=== PATIENT | male | born 1965 | race Caucasian/White ===

== ENCOUNTER 2016-05-26 18:26 | Inpatient (IN) | payer SELFPAY ==
[~2016-05-26] VITALS: Ht 193 cm; Wt 126.4 kg
--- NOTE | ~2016-05-26 | ECHO ---
Transthoracic Echocardiography Report (TTE) Demographics Patient Name JUD ROCHA Date of Study 05/27/2016 Patient Number [id number] Visit Number [id number] Date of 1965 Room Number G6310 Gender Male Number Age 51 year(s) Referring Mitul Gomez MD Helicopter Repairer Leroy Ponce RVT Physician Physician Interpreting Vilma De Paz Billiard Table Assembler Physician A Supervising Ordering Mitul Gomez MD, MD/MLP Physician Nurse Stress General Education Professor Conclusions Contractility Score Summary Normal Left Ventricular contractility was noted. Summary The estimated left ventricular ejection fraction is 60%. Moderate concentric left ventricular hypertrophy. Diastolic assessment reveals Grade II pseudonormal diastolic function . The left atrium is moderately dilated by LA volume index measurement. The right atrium is moderately dilated. Procedure Type of Study TTE procedure:2D Echocardiogram. Procedure Date Date: 05/27/2016 Start: 10:39 AM Study Location: Inpatient Portable Technical Quality: Adequate visualization Indications:Chest pain. Appropriate Use Criteria: 9 Patient Status: Routine HR: 85 bpm BP: 114/55 mmHg M-Mode/2D Measurements LV Diastolic Dimension: 4.22 cm LV Systolic Dimension: 2.87 cm LV Septum Diastolic: 1.66 cm LV PW Diastolic: 1.47 cm AO Root Dimension: 2.4 cm Cardiac Output: 3.97 l/min AV Cusp Separation: 2.1 cm RV Diastolic Dimension: 2.97 cm LVOT: 2.1 cm LVOT VTI: 13.5 cm LV Stroke volume: 46.73 ml TDI-S': 12.9 cm/s Doppler Measurements AV Peak Velocity: 1.23 m/s MV Peak E-Wave: 0.74 m/s AV Peak Gradient: 6.05 mmHg MV Peak A-Wave: 0.68 m/s AV Mean Gradient: 3 mmHg MV E/A Ratio: 1.09 LVOT Peak Velocity: 0.68 m/s MV P1/2t: 99 msec TR Gradient:15.84 mmHg PV Peak Velocity: 0.79 m/s Estimated RAP:8 mmHg PV Peak Gradient: 2.46 mmHg Estimated RVSP: 24 mmHg Estimated PASP: 23.84 mmHg E' Septal Velocity: 0.05 m/s A' Septal Velocity: 0.08 m/s E' Lateral Velocity: 0.06 m/s A' Lateral Velocity: 0.1 m/s Findings Left Ventricle Moderate concentric left ventricular hypertrophy. Diastolic assessment reveals Grade II pseudonormal diastolic function . Right Ventricle Normal appearing right ventricle structure and function. Left Atrium The left atrium is moderately dilated by LA volume index measurement. Right Atrium The right atrium is moderately dilated. IVC not visualised due to poor acoustical window. Mitral Valve Mild mitral regurgitation by color Doppler. Mild mitral annular calcification. Borderline prolapse of the mitral valve. Aortic Valve There is mild aortic regurgitation by color Doppler. Tricuspid Valve Mild tricuspid regurgitation by color Doppler. Pulmonic Valve Normal pulmonic valve structure and function. Pericardial Effusion No evidence of pericardial effusion. Miscellaneous Visualized portions of the aortic root and ascending aorta appear normal in size. Pleural Effusion No evidence of pleural effusion. Contractility Score LV regional wall motion:(0-Non visualized 1-Normal 2-Hypokinesis 3-Akinesis 4-Dyskinesis 5-Aneurysm) Signature dtt: Westley Esparza dtd: 05/27/16 1039 Physician Self Edit
--- NOTE | ~2016-05-26 | DS ---
PATIENT'S NAME: JUD ROCHA [facility] AGE: 51 Y [address] ROOM: [place] [address] LOCATION: GPCU ADMIT DATE: 05/26/2016 Discharge Summary DISCHARGE DATE: 05/29/2016 FAMILY PHYSICIAN: PHYSICIAN, NO ATTENDING PHYSICIAN: Miguel Bauman PRINCIPAL DIAGNOSES: 1. Gro-UM-vcbbift elevation myocardial infarction. 2. Chest pain, acute coronary syndrome rule out. 3. Type 2 diabetes. 4. Pericarditis. 5. Chronic pain. HOSPITAL COURSE: This is a 51-year-old male with known history of coronary artery disease, status post CABG; type 2 diabetes, presents with complaints of chest pain. Of note, the patient was recently discharged from another facility for being admitted there and was worked up for pericarditis. The patient also reports having recurrent pericarditis in the past and is currently on a steroid taper from that. In any case, the patient was seen by the Cardiology Service here, and considering his high risk for coronary artery disease, he did get a cardiac cath, which did not show obstructive lesions that required intervention. At this point, the patient is to be discharged home and continued with his home cardiac meds. The patient of note also exhibits some pain seeking behavior and managing his pain with his constant request for narcotics in the hospital has been challenging. The patient reports having severe pain from pericarditis. In any case, I will discharge him on p.o. Percocet that he can take for 5 to 7 days and have him follow up with primary care physician. I have advised the patient not to drive while taking narcotics. PHYSICAL EXAMINATION: GENERAL: The patient is awake, alert, oriented x3. CHEST: Clear to auscultation bilaterally. HEART: S1, S2. Regular rate and rhythm. ABDOMEN: Soft, nontender, nondistended. EXTREMITIES: Without edema. MEDICATIONS: Per MAR. DISPOSITION: Home. FOLLOWUP: With PCP. Less than 30 minutes were spent in discharge planning and facilitating. PATIENT'S NAME: JUD ROCHA [facility] AGE: 51 Y [address] ROOM: [place] [address] LOCATION: GPCU ADMIT DATE: 05/26/2016 Discharge Summary DISCHARGE DATE: 05/29/2016 FAMILY PHYSICIAN: PHYSICIAN, NO ATTENDING PHYSICIAN: Miguel Bauman MD ARIEL ARCHIBALD/modl /[id number] d: 05/30/16 0237 t: 06/13/16 1418, DISCHARGE SUMMARY
--- NOTE | ~2016-05-26 | CATH ---
Cardiac Diagnostic Report Demographics Patient Name JOSEFINA Styles Gender Male Date of 1965 Age 51 year(s) Patient Number [id number] Date of Study 05/28/2016 Visit Number [id number] Room Number G6310 [place] [id number] Ht 193.04 cm Wt 123.38 kg Referring Efstratiou Primary Physician Physician Zandra Karimi MD Performing Efstratiou Secondary Physician Physician Zandra Karimi MD Diagnostic Efstratiou Assisting Physician Physician Zandra Karimi MD Interventional Physician Java Consultant Physician Findings and Conclusions Diagnostic Findings and Conclusion No patent grafts but it is questionable if he needed CABG in the first place. Patent stents to mid and distal LAD and ostial and proximal RCA. The RCA stents protrudes in the aorta. No significant stenosis in a major coronary artery. Diagnostic Recommendations Medical management- add Ranexa. [facility]. Procedure Description The patient was brought to the diagnostic cardiac catheterization-EP laboratory in the fasting, non-sedated state. Informed consent was obtained in the written and verbal form after the risks and benefits were explained. The patient had no further questions and agreed to proceed. The planned puncture-incision site(s) were shaved and prepped with ChloraPrep and draped in the usual sterile manner. Conscious sedation, supplemental oxygen, and pain control medications were delivered by a registered nurse under physician guidance. Surface ECG rhythm, blood pressure measurement, and pulse oximetry were monitored throughout the procedure. Arterial access. The access site was infiltrated with lidocaine. The vessel was entered with the Seldinger technique. A sheath was advanced into the vessel and used for catheter placement. Selective left coronary angiography. A catheter was advanced into the left coronary vessel ostium under Fluoroscopic guidance. Contrast was injected by hand. Images were obtained in multiple projections. Selective right coronary angiography. A catheter was advanced into the right coronary vessel ostium under fluoroscopic guidance. Contrast was injected by hand. Images were obtained in multiple projections. Arterial artery hemostasis was achieved. The patient was transferred to a regular nursing floor via cart accompanied by a nurse. The patient left the laboratory in stable condition. Diagnostic Cath Status: Urgent Procedure Procedure Type Diagnostic procedure:Angiography:, Coronary Angios Indications: Chest pain. The procedure was explained in detail to the patient. Risks, complications and alternative treatments were reviewed. Written consent was obtained. Medications Reviewed with Patient prior to Procedure. Angiographic Findings Dominance: Right Cardiac Arteries and Lesion Findings LMCA: Normal (0% Stenosis).short, patent LAD: mid patent stent, distal patent stentThere is a previous stent on Dist LAD. There is a previous stent on Mid LAD. Lesion on Dist LAD: Mid subsection.30% stenosis . Comments:lesion distal to stent Lesion on 1st Dia% stenosis . LCx: Lesion on Prox CX: 20% stenosis . Lesion on 1st Ob Mary: Ostial.30% stenosis . RCA: RCA patent ostial and proximal stent PL patent stentThere is a previous stent on Prox RCA Ostial. There is a previous stent on 1st RPL. Lesion on R PDA: 20% stenosis . Coronary Tree Procedure Data Procedure Date Date: 05/28/2016Start: 01:15 PMEnd: 02:04 PM Entry Locations - Retrograde Percutaneous access was performed through the Right Femoral artery (Primary location). A 6 Fr sheath was inserted. Hemostasis was successfully obtained using Angio-Seal STS PLUS ([place]). Closure Comments: Deployed by Dr. De Jesus. Procedure Medications Order and Administration + + +-------+ + !Time !Medication !Dosage !Route ! + + +-------+ + !05/28/2016 01:11 PM !Versed !2 mg !I.V. ! + + +-------+ + !05/28/2016 01:11 PM !Fentanyl !50 mcg !I.V. ! + + +-------+ + !05/28/2016 01:44 PM !Heparin (ACC_3) ! !I.V. drip ! + + +-------+ + !05/28/2016 01:45 PM !Fentanyl !50 mcg !I.V. ! + + +-------+ + Devices Used - A6 Fr. BS JL 4 Diag. Catheterwas used for:Left coronary angiography. - A6 Fr. BS JR 4 Diag. Catheterwas used for:Right coronary angiography.Unable to cannulate the vessel. - A6 Fr. JJ 3DRC Diag. Catheterwas used for:Right coronary angiography.Unable to cannulate the vessel. - A6 Fr. BS AR1 Diag. Catheterwas used for:Right coronary angiography.Unable to cannulate the vessel. - A6 Fr. BS AL1 Diag. Catheterwas used for:Right coronary angiography.Unable to cannulate the vessel. - A6 Fr. BS JR 5 Diag. Catheterwas used for:Right coronary angiography. Contrast Material - Isovue [id number] ml Fluoroscopy Time: Diagnostic: 12:30 minutes. Total: 12:30 minutes. Fluoroscopy Dose: Diagnostic: 1765 mGy. Total: 1765 mGy. Estimated Blood Loss: 30 ml. Medical History Allergies - Iodine. - Morphine. - Other:(tramadol, retinolac,). Risk Factors The patient risk factors include:prior PCI on 02/27/2015; prior CABG on 02/27/2014;obesity, treated hypercholesterolemia, hypertension, insulin-treated diabetes mellitus, last creatinine: 0.9 mg/dl, creatinine clearance: 169.46 ml/min, dyslipidemia, Current/Recent(w/in 1 year) tobacco use and prior MD . Admission Data Admission Date: 05/28/2016 Admission Time: 03:35 PM [facility] Insurance Payors: None. Admission Medications + +------+------+ + + + + !Medication !Dosage!Times !Last !Last !Administered !Comments ! ! ! !Per !Delivery !Delivery ! ! ! ! ! !Day !Date !Time ! ! ! + +------+------+ + + + + !SAULO ! ! ! ! !Yes ! ! !Inhibitor ! ! ! ! ! ! ! !(any) ! ! ! ! ! ! ! + +------+------+ + + + + !Beta Marisa! ! ! ! !Yes ! ! !(any) ! ! ! ! ! ! ! + +------+------+ + + + + !Statin (any)! ! ! ! !Yes ! ! + +------+------+ + + + + !Aspirin ! ! ! ! !Yes ! ! !(any) ! ! ! ! ! ! ! + +------+------+ + + + + !Nitrates (iv! ! ! ! !Yes ! ! !or buccal) ! ! ! ! ! ! ! + +------+------+ + + + + Clinical Evaluation Leading to Procedure - The patient's CAD presentation was assessed as: Non-STEMI. - The patient's anginal syndrome during the past two weeks was assessed as: Class IV according to the [place] Cardiovascular Society Classification System (CCS). Anti-anginal medications were prescribed during the past two weeks. The medication is: Beta Blockers. Snapshots Hemodynamics Condition: Rest O2 Consumption: Estimated: 309.69Heart Rate: 79 bpm Pressures (mmHg) +-----+ + !Site !Pressure ! +-----+ + !AO !158/80 (115) ! +-----+ + !AO !108/40 (65) ! +-----+ + !AO !166/88 (122) ! +-----+ + !AO !138/77 (100) ! +-----+ + Shunts Oxygen Values O2 Capacity 450.16 O2 Consumption 309.69 Discharge Data Discharge Date: 05/29/2016 Hospital Status: Inpatient Signatures dtt: Westley Esparza dtd: 05/28/16 1315 Physician Self Edit
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
[2016-05-26 22:14] LABS: BASOPHIL % 0.2 %; EOSINOPHIL # 0.1 K/uL (0.0-0.5); EOSINOPHIL % 1.1 %; HEMOGLOBIN 11.5 g/dL (12.0-17.0); IMMATURE GRANULOCYTE # 0.3 K/uL (0.0-0.3); LYMPHOCYTE # 2.1 K/uL (0.8-4.0); LYMPHOCYTE % 16.4 %; MCH 26.5 pg (27.0-34.0); MCHC 31.9 gm/dL (32.0-36.5); MCV 82.9 fl (83.0-98.0); MONOCYTE # 0.7 K/uL (0.0-1.0); MONOCYTE % 5.5 %; MPV 10.1 fl (9.4-12.4); NEUTROPHIL # (ANC) 9.7 K/uL (1.4-9.0); NEUTROPHIL % 74.8 %; NRBC % 0 /100WBC (0-0.00); PLATELET COUNT 246 K/uL (150-450); RBC 4.34 M/uL (4.00-6.00); RDW-CV 15.3 % (11.9-14.6)
[2016-05-26 22:20] LABS: ALBUMIN 2.8 gm/dL (3.5-5.0); CALCIUM 8.3 mg/dL (8.5-10.5); CHLORIDE 101 mMol/L (96-110); POTASSIUM 4.5 mMol/L (3.7-5.1); SODIUM 137 mMol/L (135-145)
[2016-05-26 22:25] LABS: ALK PHOS 82 IU/L (33-138); ALT 52 IU/L (12-78); ANION GAP 13.5 (10.0-19.0); AST 28 IU/L (10-40); BLOOD UREA NITROGEN 26 mg/dL (6-24); CO2 27 mMol/L (22-32); CPK 120 IU/L (35-332); CREATININE 0.9 mg/dL (0.6-1.3); ESTIMATED GFR (MDRD EQUATION) > 60; TOTAL BILIRUBIN 0.3 mg/dL (0.0-1.5); TOTAL PROTEIN 5.9 g/dL (6.0-8.4)
[2016-05-26 22:26] LABS: INR - (THERAPEUTIC) 0.9 (0.9-1.1); PROTIME 9.5 SECONDS (9.6-11.1); PTT 22 SECONDS (25-32)
[2016-05-27] MEDS ORDERED: LOPRESSOR100 MG PO (00:03)
[2016-05-27] MEDS ORDERED: ZESTRIL40 MG PO (00:04)
[2016-05-27] MEDS ORDERED: PLAVIX75 MG PO (00:04)
[2016-05-27] MEDS ORDERED: ASPIRIN LO-DOSE81 MG PO (00:05)
[2016-05-27] MEDS ORDERED: LANTUS (IN100 UNIT/M SUB-Q (00:06)
[2016-05-27] MEDS ORDERED: NOVOLOG100 UNIT/M SUB-Q (00:08)
[2016-05-27] MEDS ORDERED: DELTASONE20 MG PO (00:11)
[2016-05-27] MEDS ORDERED: DILAUDID 2MG(HYD2 MG PO (00:16)
[2016-05-27] MEDS ORDERED: PERCOCET 5-3251 EACH PO (00:18)
[2016-05-27] MEDS ORDERED: NITROSTAT0.4 MG SL (00:19)
[2016-05-27 01:44] LABS: BILIRUBIN URINE NEGATIVE (NEGATIVE); BLOOD URINE NEGATIVE /UL (NEGATIVE); COLOR URINE YELLOW (YELLOW); GLUCOSE URINE 100 mg/dL (NEGATIVE); KETONE URINE NEGATIVE (NEGATIVE); LEUKOCYTES URINE NEGATIVE /UL (NEGATIVE); NITRITE URINE NEGATIVE (NEGATIVE); PH URINE 6.5 (4.0-8.0); PROTEIN URINE 15 mg/dL (NEGATIVE); TURBIDITY URINE CLEAR (CLEAR); UROBILINOGEN URINE NORMAL (NORMAL)
[2016-05-27 01:56] LABS: BACTERIA URINE RARE (NEGATIVE); EPITHELIAL URINE 0-2 #/HPF (NEGATIVE); RBC URINE NEGATIVE #/HPF (NEGATIVE); RENAL EPITH URINE NEGATIVE #/HPF (NEGATIVE); WBC URINE NEGATIVE #/HPF (NEGATIVE)
--- NOTE | 2016-05-27 04:55 | NUR ---
PATIENT ADMITTED FOR 910 CHEST PAIN. HX PERICARDITIS AND DM. PATIENT IS A/O. HR TACHY 100-110s. SBP 120-150s. NITRO AT 20MCG/MIN. HERPRIN AT 1000UNITS/HR. MANY PAIN MEDS GIVEN, DULADID AND FENTANYL SEE EMAR. R) IJ CENTRAL LINE. VOIDS PER URINAL. CT CHEST W/O CONTRAST DONE. PLAN FOR CT CHEST WITH CONTRAST TODAY. PRE TREATING FOR ALLERGY TO IODINE.
[2016-05-27 05:11] LABS: CALCIUM 8.6 mg/dL (8.5-10.5); CREATININE 1.3 mg/dL (0.6-1.3)
[2016-05-27 05:17] LABS: ANION GAP 16.7 (10.0-19.0); POTASSIUM 5.7 mMol/L (3.7-5.1)
[2016-05-27 05:46] LABS: BASOPHIL % 0.2 %; HEMATOCRIT 36.4 % (37.0-53.0); HEMOGLOBIN 11.6 g/dL (12.0-17.0); IMMATURE GRANULOCYTE # 0.2 K/uL (0.0-0.3); IMMATURE GRANULOCYTE % 1.8 %; LYMPHOCYTE # 0.7 K/uL (0.8-4.0); LYMPHOCYTE % 5.2 %; MCH 26.7 pg (27.0-34.0); MCHC 31.9 gm/dL (32.0-36.5); MCV 83.7 fl (83.0-98.0); MONOCYTE # 0.2 K/uL (0.0-1.0); MONOCYTE % 1.7 %; MPV 10.2 fl (9.4-12.4); NEUTROPHIL # (ANC) 12.1 K/uL (1.4-9.0); NEUTROPHIL % 91.1 %; NRBC % 0 /100WBC (0-0.00); PLATELET COUNT 265 K/uL (150-450); RBC 4.35 M/uL (4.00-6.00); RDW-CV 15.5 % (11.9-14.6); WBC 13.2 K/uL (4.0-11.0)
--- NOTE | 2016-05-27 12:33 | NUR ---
Introduced self and CM role to patient late this morning. He stated he has [employer] insurance but does not have his card with him and won't be able to get to it until he gets back home after discharge. Pt lives alone in [place], [place]. States his several years ago. He identified that he was going to his father's home to get some of his belongings when he ended up at the [facility] before coming here. He states he has no issue caring for himself or getting his medication. Plan to drive himself home upon discharge. Possible discharge early next week. Will continue to follow and assist if needed. CM chief of internal medicine TH.
--- NOTE | 2016-05-27 15:14 | NUR ---
Diabetes Consult: Patient reports having Type II diabetes and a history of pericarditis. Patient reports he has been on steroid therapy for quite some time. A1C is elevated at 9.7%. The patient is knowledgeable regarding his diabtes. Assisted the patient in completing the diabetes survival skills assessment form, with no knowledge deficits found. Patient reports being low on testing supplies. Informed the patient on how to purchase a Reli on prime meter at [facility], which may cost less than the strips he is currently using. Patient denies further questions or needs.
--- NOTE | 2016-05-27 18:16 | NUR ---
Treated chest pain throughout day with diluadid and fentenyl. Pt on 2L 02.
--- NOTE | 2016-05-27 18:18 | NUR ---
I HAVE READ AND AGREE WITH CHARTING DONE BY Alexa TYLER STUDENT NURSE.
--- NOTE | 2016-05-27 18:19 | NUR ---
Treated chest pain with dilaudid and fentenyl. pt on 2L 02 via nasal cannula.
--- NOTE | 2016-05-28 04:04 | NUR ---
A/O. HR 70-80s. SBP 110-140s. 2L NC FOR COMFORT. AFEBRILE. C/O CHEST PAIN 11/06. MULTI DOSE FENT AND DULAIDID GIVEN SEE EMAR. NS RUNNING AT 100ML/HR. NITRO OFF. R) IJ CENTRAL LINE. HEPARIN RUNNING AT 1500 UNITS/HR CURRENTLY.
[2016-05-28 05:47] LABS: ALBUMIN 2.6 gm/dL (3.5-5.0); BLOOD UREA NITROGEN 26 mg/dL (6-24); CALCIUM 8.4 mg/dL (8.5-10.5); CHLORIDE 106 mMol/L (96-110); CO2 26 mMol/L (22-32); CREATININE 0.9 mg/dL (0.6-1.3); ESTIMATED GFR (MDRD EQUATION) > 60; MAGNESIUM 2.4 mg/dL (1.3-2.6); PHOSPHORUS 2.5 mg/dL (2.5-4.9)
[2016-05-28 05:49] LABS: ANION GAP 13.5 (10.0-19.0); POTASSIUM 4.5 mMol/L (3.7-5.1); SODIUM 141 mMol/L (135-145)
[2016-05-28 05:52] LABS: BASOPHIL % 0.1 %; EOSINOPHIL # 0.1 K/uL (0.0-0.5); EOSINOPHIL % 0.4 %; HEMATOCRIT 33.1 % (37.0-53.0); HEMOGLOBIN 10.5 g/dL (12.0-17.0); IMMATURE GRANULOCYTE # 0.2 K/uL (0.0-0.3); IMMATURE GRANULOCYTE % 1.7 %; LYMPHOCYTE # 2.5 K/uL (0.8-4.0); LYMPHOCYTE % 19.8 %; MCH 26.9 pg (27.0-34.0); MCHC 31.7 gm/dL (32.0-36.5); MCV 84.9 fl (83.0-98.0); MONOCYTE # 0.8 K/uL (0.0-1.0); MONOCYTE % 6.7 %; MPV 10.4 fl (9.4-12.4); NEUTROPHIL % 71.3 %; NRBC % 0 /100WBC (0-0.00); PLATELET COUNT 264 K/uL (150-450); RDW-CV 15.9 % (11.9-14.6); WBC 12.6 K/uL (4.0-11.0)
[2016-05-28 10:57] LABS: INR - (THERAPEUTIC) 0.9 (0.9-1.1); PROTIME 9.4 SECONDS (9.6-11.1)
[2016-05-28 11:07] LABS: ALBUMIN 2.8 gm/dL (3.5-5.0); ALK PHOS 72 IU/L (33-138); ALT 39 IU/L (12-78); ANION GAP 14.7 (10.0-19.0); AST 15 IU/L (10-40); BLOOD UREA NITROGEN 26 mg/dL (6-24); CALCIUM 8.4 mg/dL (8.5-10.5); CHLORIDE 108 mMol/L (96-110); CO2 23 mMol/L (22-32); CPK 57 IU/L (35-332); POTASSIUM 4.7 mMol/L (3.7-5.1); SODIUM 141 mMol/L (135-145); TOTAL PROTEIN 6.2 g/dL (6.0-8.4)
[2016-05-28 11:08] LABS: ESTIMATED GFR (MDRD EQUATION) > 60; TOTAL BILIRUBIN 0.4 mg/dL (0.0-1.5)
--- NOTE | 2016-05-28 12:18 | NUR ---
D:Patient has been c/o chest pain, has gotten multiple doses of Fent and Dilaudid. Does get some relief and sleeps for about an hour and then starts c/o pain. Skin is warm and dry. Patient does moan. Hospitalist aware, and was updated when made rounds. Will cath later today. Patient did sign heart cath permits. Had been about 2 hours since last dose of pain meds, and patient is verbelizing understanding of procedure and desire to have it done. Has had many done. Nitro back on at 0725, is at 3 mcg/min. Patient doesn't want the Nitro on , he doesn't feel that it is helpful with the pain. Patient is adamant about getting pain medication, and at 0725, when tried to tell patient that it wasn't quite time for pain medication, he got angry and said he would just leave then. Since then has not made those threats and has been slightly more patient. Resting quietly at this time, waiting to go to laboratory animal care veterinarian.
--- NOTE | 2016-05-28 13:45 | NUR ---
D:Patient to high density press laborer at 1255 per bed.
--- NOTE | 2016-05-28 17:28 | NUR ---
Significant Event:Patient had alot of crushing chest pain this am, taking both Fent and Dilaudid for the pain. Did go to slabber, it was negative. Right groin is soft, has gauze and tegaderm to site. Heparin off, Nitro off. Does have NS infusing at 100 ml/hr. Was started on Lovenox. Refused Levimer this am, was NPO most of the day. Accucheck this am-155, refused 2 units Aspart; at 1100-121, no SSI; and 1700-207. Did eat some gram crackers around 1500. After heart cath patient still wanting IV pain medications for "percarditis pain". Dr. Riley into see patient, agreed that patient could have 2 mg Dilaudid every 3 hr. Patient last had at 1620. Follow up:Monitor post cath, pain control
--- NOTE | 2016-05-28 17:50 | NUR ---
D:Patient returned to floor at 1405. They did no interventions, it was a negative cath. Right groin is soft, dressing is dry and intact. Heparin off, Nitro off, has NS infusing at 100 ml/hr. Did get 130 ml of dye in cath. Right groin was Perclosed. P:Monitor post cath
[2016-05-29 04:27] LABS: ALBUMIN 2.5 gm/dL (3.5-5.0); ANION GAP 16.7 (10.0-19.0); BLOOD UREA NITROGEN 24 mg/dL (6-24); CALCIUM 8.4 mg/dL (8.5-10.5); CHLORIDE 102 mMol/L (96-110); CO2 24 mMol/L (22-32); CREATININE 1.1 mg/dL (0.6-1.3); ESTIMATED GFR (MDRD EQUATION) > 60; MAGNESIUM 2.3 mg/dL (1.3-2.6); PHOSPHORUS 2.9 mg/dL (2.5-4.9); POTASSIUM 4.7 mMol/L (3.7-5.1); SODIUM 138 mMol/L (135-145)
[2016-05-29 04:37] LABS: BASOPHIL % 0.1 %; HEMATOCRIT 32.8 % (37.0-53.0); HEMOGLOBIN 10.2 g/dL (12.0-17.0); IMMATURE GRANULOCYTE # 0.2 K/uL (0.0-0.3); IMMATURE GRANULOCYTE % 1.5 %; LYMPHOCYTE # 0.9 K/uL (0.8-4.0); LYMPHOCYTE % 7.7 %; MCH 26.2 pg (27.0-34.0); MCHC 31.1 gm/dL (32.0-36.5); MCV 84.1 fl (83.0-98.0); MONOCYTE # 0.7 K/uL (0.0-1.0); MONOCYTE % 5.6 %; MPV 10.3 fl (9.4-12.4); NEUTROPHIL # (ANC) 10.4 K/uL (1.4-9.0); NEUTROPHIL % 85.1 %; NRBC % 0 /100WBC (0-0.00); PLATELET COUNT 269 K/uL (150-450); RDW-CV 15.3 % (11.9-14.6); WBC 12.2 K/uL (4.0-11.0)
--- NOTE | 2016-05-29 05:22 | NUR ---
Significant Event: C/O PAIN ALL NIGHT. DILAUDID 2MG GIVEN EVERY 3 HRS ALMOST TO THE MIN TIMES 3. HE WAS GIVEN 0.5MG DILAUDID X1 FOR BREAKTHROUGH PAIN. HE WAS ALSO GIVEN 2MG 30MIN EARLY X1 PER DR. CRONIN'S ORDER. AT HS, HIS BLOOD SUGAR WAS 485. 12 UNITS OF NOVOLOG WAS GIVEN PER DR. CRONIN. THIS MAN CONTINUED TO EAT ALL NIGHT LONG. HE RESTED OFF AND ON ALL NIGHT. UP AD ENRIQUE TO BR. Follow up:
--- NOTE | 2016-05-29 18:42 | NUR ---
I HAVE READ AND AGREE WITH CHARTING DONE BY Alexa TYLER STUDENT NURSE.
== END 2016-05-29 15:00 | disposition disaster alternative care site (69) | DRG 281 ==
LOC: GMED 18:26 → GPCU 21:23
PROVIDERS: Emergency Medicine; Internal Medicine Cardiovascular Disease; ADMIT Family Medicine
PROC: 4A023N8 Measurement of Cardiac Sampling and Pressure, Bilateral, Percutaneous Approach (ICD-10-PCS; principal; 2016-05-28)
PROC: B211YZZ Fluoroscopy of Multiple Coronary Arteries using Other Contrast (ICD-10-PCS; 2016-05-28)
DX: I21.4 Non-ST elevation (NSTEMI) myocardial infarction (principal); I31.9 Disease of pericardium, unspecified; E11.9 Type 2 diabetes mellitus without complications; G89.29 Other chronic pain; Z95.1 Presence of aortocoronary bypass graft; K21.9 Gastro-esophageal reflux disease without esophagitis; I25.10 Atherosclerotic heart disease of native coronary artery without angina pectoris; F17.290 Nicotine dependence, other tobacco product, uncomplicated; I10 Essential (primary) hypertension
CPT/HCPCS: C1760; C9113; G0378; J1170; J1200; J1644; J1650; J2250; J2930; J3010; J7030; J7512